=== PATIENT | male | born 1960 | race Caucasian/White ===

== ENCOUNTER 2023-07-31 15:45 | Emergency (ER) | payer MEDICARE, MEDICAID ==
[~2023-07-31] VITALS: Ht 170.2 cm; Wt 68.0 kg
[2023-07-31 15:54] VITALS: O2SAT 98
[2023-07-31] MEDS ORDERED: TOPUD MT (16:55)
[2023-07-31] MEDS ORDERED: LIDO700A15 TP (16:55)
[2023-07-31] MEDS ORDERED: KETOROLAC 30MG/ML VIAL IM ONE (17:00)
[2023-07-31] MEDS ORDERED: KETOROLAC 30MG/ML VIAL ONE (18:05)
[2023-07-31 18:22] VITALS: BP 120/61; PULSE 87; RESP 18; TEMP 98.7
== END 2023-07-31 18:24 | disposition home or self-care (01) ==
LOC: ER 15:45
DX: M54.50 Low back pain, unspecified (principal); W01.0XXA Fall on same level from slipping, tripping and stumbling without subsequent striking against object, initial encounter; Y93.89 Activity, other specified; Y92.89 Other specified places as the place of occurrence of the external cause; Y99.8 Other external cause status
CPT/HCPCS: 99283; 96372; J1885